=== PATIENT | male | born 1990 | race Caucasian/White ===

== ENCOUNTER 2016-11-03 13:48 | Emergency (ER) | payer MEDICAID ==
[2016-11-03 16:59] LABS: BASOPHIL % 0.5 % (0-2); PLATELET COUNT 192 x10^3mcL (130-400); RED CELL DISTRIBUTION WIDTH 11.9 % (11.5-14.5)
[2016-11-03 17:11] LABS: CALCIUM 8.7 mg/dL (8.5-10.1); CARBON DIOXIDE 29.2 mmol/L (21-32); CHLORIDE SERUM 101 mmol/L (98-107); GFR1 > 60 mL/min; GLUCOSE SERUM 86 mg/dL (74-106); POTASSIUM SERUM 3.5 mmol/L (3.5-5.1); SODIUM SERUM 138 mmol/L (136-145)
[2016-11-03 17:15] LABS: ALBUMIN 3.7 g/dL (3.4-5.0); ALKALINE PHOSPHATASE 38 U/L (46-116); ALT/SGPT 141 U/L (16-63); AST/SGOT 111 U/L (15-37); BILIRUBIN TOTAL 1.6 mg/dL (0.20-1.00); CHOLESTEROL 168 mg/dL (<200); HDL CHOLESTEROL 38 mg/dL (40-60); TOTAL PROTEIN, SERUM 7.9 g/dL (6.4-8.2)
[2016-11-03 17:50] LABS: UA SPECIFIC GRAVITY >=1.030 (1.005-1.035); microscopic required? YES; urine erythrocyte NEGATIVE (NEGATIVE)
[2016-11-03 19:50] LABS: APPEARANCE CSF CLEAR; COLOR CSF COLORLESS; VOLUME CSF 3.5 mL; WBC CSF 1 /cumm (0-5)
[2016-11-03 19:51] LABS: RBC CSF 0 /cumm (0)
[2016-11-03 19:58] LABS: TOTAL PROTEIN CSF 35.4 mg/dL (15-45)
[2016-11-03 21:30] VITALS: BP 131/93
== END 2016-11-03 21:30 | disposition home or self-care (01) ==
LOC: ED 13:48
PROVIDERS: Emergency Medicine
DX: R55 Syncope and collapse (principal); E86.0 Dehydration; B34.9 Viral infection, unspecified; J02.9 Acute pharyngitis, unspecified; I10 Essential (primary) hypertension
CPT/HCPCS: 83880; J2060; J2930; J7030